=== PATIENT | female | born 1990 | race African-American/Black ===

== ENCOUNTER 2016-12-16 22:02 | Emergency (ER) | payer MEDICAID ==
[~2016-12-16] VITALS: Ht 160 cm; Wt 61.5 kg
[~2016-12-16 22:02] MED LIST: CYCL-36 PO; NAPR500 PO; TRAM50TA PO
[2016-12-16 22:05] VITALS: BP 133/82; PULSE 85; RESP 16; TEMP 98.1; O2SAT 100
== END 2016-12-17 01:20 | disposition left against medical advice (07) ==
LOC: NED 22:02
DX: R10.9 Unspecified abdominal pain (principal); M54.9 Dorsalgia, unspecified; Z53.21 Procedure and treatment not carried out due to patient leaving prior to being seen by health care provider
CPT/HCPCS: 99281

== ENCOUNTER 2017-02-05 14:58 | Emergency (ER) | payer MEDICAID ==
[~2017-02-05] VITALS: Ht 160 cm; Wt 60.0 kg
[2017-02-05 14:59] VITALS: BP 136/93; PULSE 84; RESP 18; TEMP 97.6; O2SAT 100
[2017-02-05] MEDS ORDERED: KETOROLAC TROMETHAMINE 30 MG/ML (IVP) VIAL IVP ONE (19:15)
[2017-02-05] MEDS ORDERED: SODIUM CHLORIDE 0.9% FLUSH 10 ML FLUSH IV FLUSH PRN (19:15)
[2017-02-05] MEDS ORDERED: ONDANSETRON HCL 4 MG/2 ML VIAL IVP ONE (19:15)
--- NOTE | 2017-02-05 19:15 | PD ---
HPI Chief Complaint: Abdominal Pain Time Seen by Provider: 19:00 Travel History International Travel<30 days: No Contact w/Intl Traveler<30days: No Traveled to known affect area: No History of Present Illness HPI 26yo F with PMH of cholelithiasis presents to the ED with c/o generalized abdominal pain that radiates to generalized back pain since around 1pm today. Pain is like contractions and constant. Associated with nausea. Denies any fever, chest pain, sob, vomiting, diarrhea, vaginal bleeding or discharge, IVDA , trauma, focal weakness or numbness. States LMP was in january 2017. Took grandmother's oxycodone at 1pm which helped with pain. PFSH Past Medical History Hx Anticoagulant Therapy: No Cardiovascular Problems: No Chemotherapy: No Cerebrovascular Accident: No Diabetes: No Diminished Hearing: No Respiratory: No Immunizations Current: Yes Past Surgical History Hysterectomy: No Other Surgery: Yes (lower leg fx in 09/2016) Social History Alcohol Use: Yes (OCC) Tobacco Use: No Substance Use: No Allergies-Medications (Allergen,Severity, Reaction): Coded Allergies: Penicillin (Verified Allergy, Intermediate, Hives, 02/05/17) Reported Meds & Prescriptions Reported Meds & Active Scripts Active Zofran Odt (Ondansetron Odt) 4 Mg Tab 4 Mg SL Q8HR PRN Acetaminophen Extra Strength (Acetaminophen) 500 Mg Tab 500 Mg PO Q6H PRN Reported Zantac (Ranitidine HCl) 150 Mg Tab 150 Mg PO DAILY Review of Systems Except as stated in HPI: all other systems reviewed are Neg Physical Exam Narrative GENERAL: 26yo F not in distress. SKIN: Focused skin assessment warm/dry. HEAD: Atraumatic. Normocephalic. NECK: Trachea midline. No JVD. CARDIOVASCULAR: Regular rate and rhythm. No murmur appreciated. RESPIRATORY: No accessory muscle use. Clear to auscultation. Breath sounds equal bilaterally. GASTROINTESTINAL: Abdomen soft, mild tenderness diffusely. No Mcburney's point ttp or Walker's ttp. No rebound tenderness or guarding. BACK: No midline ttp thoracic or lumbar spine. Diffuse paraspinal tenderness on both sides. MUSCULOSKELETAL: No obvious deformities. No clubbing. No cyanosis. No edema. NEUROLOGICAL: Awake and alert. No obvious cranial nerve deficits. Motor grossly within normal limits. Normal speech. PSYCHIATRIC: Appropriate mood and affect; insight and judgment normal. Data Data Last Documented VS Vital Signs Date Time Temp Pulse Resp B/P Pulse Ox O2 Delivery O2 Flow Rate FiO2 02/05/17 19:41 60 16 116/79 100 Room Air 02/05/17 14:59 97.6 Orders Complete Blood Count With Diff (02/05/17 19:06) Lipase (02/05/17 19:06) Urinalysis - C+S If Indicated (02/05/17 19:06) Iv Access Insert/Monitor (02/05/17 19:06) Ecg Monitoring (02/05/17 19:06) Oximetry (02/05/17 19:06) Ondansetron Inj (Zofran Inj) (02/05/17 19:15) Sodium Chloride 0.9% Flush (Ns Flush) (02/05/17 19:15) Ketorolac Inj (Toradol Inj) (02/05/17 19:15) Ed Urine Pregnancytest Poc (02/05/17 19:06) Ed Poc Ultrasound (02/05/17 ) Basic Metabolic Panel (Bmp) (02/05/17 19:20) Hepatic Functional Panel (02/05/17 19:20) Labs Laboratory Tests Test 02/05/17 02/05/17 19:00 19:20 Urine Color YELLOW Urine Turbidity HAZY Urine pH 6.5 Urine Specific [place] 1.030 Urine Protein 30 mg/dL Urine Glucose (UA) NEG mg/dL Urine Ketones NEG mg/dL Urine Occult Blood NEG Urine Nitrite NEG Urine Bilirubin NEG Urine Urobilinogen 4.0 MG/DL Urine Leukocyte Esterase NEG Urine RBC 1 /hpf Urine WBC 5 /hpf Urine Squamous Epithelial 4 /hpf Cells Urine Mucus MANY /lpf Microscopic Urinalysis Comment CULT NOT INDICATED White Blood Count 11.8 TH/MM3 Red Blood Count 4.41 MIL/MM3 Hemoglobin 12.3 GM/DL Hematocrit 38.0 % Mean Corpuscular Volume 86.2 FL Mean Corpuscular Hemoglobin 27.9 PG Mean Corpuscular Hemoglobin 32.3 % Concent Red Cell Distribution Width 13.7 % Platelet Count 258 TH/MM3 Mean Platelet Volume 9.7 FL Neutrophils (%) (Auto) 82.2 % Lymphocytes (%) (Auto) 13.4 % Monocytes (%) (Auto) 3.6 % Eosinophils (%) (Auto) 0.2 % Basophils (%) (Auto) 0.6 % Neutrophils # (Auto) 9.7 TH/MM3 Lymphocytes # (Auto) 1.6 TH/MM3 Monocytes # (Auto) 0.4 TH/MM3 Eosinophils # (Auto) 0.0 TH/MM3 Basophils # (Auto) 0.1 TH/MM3 CBC Comment DIFF FINAL Differential Comment Sodium Level 140 MEQ/L Potassium Level 3.6 MEQ/L Chloride Level 105 MEQ/L Carbon Dioxide Level 26.8 MEQ/L Anion Gap 8 MEQ/L Blood Urea Nitrogen 9 MG/DL Creatinine 0.70 MG/DL Estimat Glomerular Filtration 122 ML/MIN Rate Random Glucose 110 MG/DL Calcium Level 8.6 MG/DL Total Bilirubin 0.1 MG/DL Direct Bilirubin 0.1 MG/DL Indirect Bilirubin 0.0 MG/DL Aspartate Amino Transf 42 U/L (AST/SGOT) Alanine Aminotransferase 35 U/L (ALT/SGPT) Alkaline Phosphatase 77 U/L Total Protein 7.8 GM/DL Albumin 3.6 GM/DL Lipase 87 U/L MDM Medical Decision Making Medical Screen Exam Complete: Yes Emergency Medical Condition: Yes Interpretation(s) Vital Signs Date Time Temp Pulse Resp B/P Pulse Ox O2 Delivery O2 Flow Rate FiO2 02/05/17 19:41 60 16 116/79 100 Room Air 02/05/17 14:59 97.6 84 18 136/93 100 Room Air Laboratory Tests Test 02/05/17 02/05/17 19:00 19:20 Urine Color YELLOW (YELLW/STRAW) Urine Turbidity HAZY (CLEAR) Urine pH 6.5 (5.0-8.5) Urine Specific [place] 1.030 (1.002-1.035) Urine Protein 30 mg/dL (NEG-TRACE) Urine Glucose (UA) NEG mg/dL (NEG) Urine Ketones NEG mg/dL (NEG) Urine Occult Blood NEG (NEG) Urine Nitrite NEG (NEG) Urine Bilirubin NEG (NEG) Urine Urobilinogen 4.0 MG/DL (LESS THAN 2.0) Urine Leukocyte Esterase NEG (NEG) Urine RBC 1 /hpf (0-3) Urine WBC 5 /hpf (0-5) Urine Squamous Epithelial 4 /hpf (0-5) Cells Urine Mucus MANY /lpf (OCC) Microscopic Urinalysis Comment CULT NOT INDICATED White Blood Count 11.8 TH/MM3 (4.0-11.0) Red Blood Count 4.41 MIL/MM3 (4.00-5.30) Hemoglobin 12.3 GM/DL (11.6-15.3) Hematocrit 38.0 % (35.0-46.0) Mean Corpuscular Volume 86.2 FL (80.0-100.0) Mean Corpuscular Hemoglobin 27.9 PG (27.0-34.0) Mean Corpuscular Hemoglobin 32.3 % Concent (32.0-36.0) Red Cell Distribution Width 13.7 % (11.6-17.2) Platelet Count 258 TH/MM3 (150-450) Mean Platelet Volume 9.7 FL (7.0-11.0) Neutrophils (%) (Auto) 82.2 % (16.0-70.0) Lymphocytes (%) (Auto) 13.4 % (9.0-44.0) Monocytes (%) (Auto) 3.6 % (0.0-8.0) Eosinophils (%) (Auto) 0.2 % (0.0-4.0) Basophils (%) (Auto) 0.6 % (0.0-2.0) Neutrophils # (Auto) 9.7 TH/MM3 (1.8-7.7) Lymphocytes # (Auto) 1.6 TH/MM3 (1.0-4.8) Monocytes # (Auto) 0.4 TH/MM3 (0-0.9) Eosinophils # (Auto) 0.0 TH/MM3 (0-0.4) Basophils # (Auto) 0.1 TH/MM3 (0-0.2) CBC Comment DIFF FINAL Differential Comment Sodium Level 140 MEQ/L (136-145) Potassium Level 3.6 MEQ/L (3.5-5.1) Chloride Level 105 MEQ/L (98-107) Carbon Dioxide Level 26.8 MEQ/L (21.0-32.0) Anion Gap 8 MEQ/L (5-15) Blood Urea Nitrogen 9 MG/DL (7-18) Creatinine 0.70 MG/DL (0.50-1.00) Estimat Glomerular Filtration 122 ML/MIN Rate (>89) Random Glucose 110 MG/DL (74-106) Calcium Level 8.6 MG/DL (8.5-10.1) Total Bilirubin 0.1 MG/DL (0.2-1.0) Direct Bilirubin 0.1 MG/DL (0.0-0.2) Indirect Bilirubin 0.0 MG/DL (0.0-0.8) Aspartate Amino Transf 42 U/L (15-37) (AST/SGOT) Alanine Aminotransferase 35 U/L (10-53) (ALT/SGPT) Alkaline Phosphatase 77 U/L (45-117) Total Protein 7.8 GM/DL (6.4-8.2) Albumin 3.6 GM/DL (3.4-5.0) Lipase 87 U/L (73-393) Differential Diagnosis Gastritis vs. cholecystitis vs. vs. pyelonephritis vs. nephrolithiasis vs. pancreatitis vs. musculoskeletal pain Narrative Course 26yo well appearing female here with abdominal and back pain. Abdominal exam is unremarkable although pt states it hurts everywhere. Will check urine , UA, labs and give zofran and toradol. Will reevaluate. Pt reevaluated at bedside and states abdominal pain has resolved. Abdomen is soft, NT/ND. No rebound tenderness or guarding. Labs reviewed, mild leukocytosis at 11.8. Lipase normal at 87. CMP unremarkable except for mildly elevated 42. UA showed no leukocyte or nitrite. VS stable. Pt tolerating PO. Return precautions given. Procedures Procedure Narrative Emergency department urinary tract ultrasound was performed with patient consent. Curvilinear probe was used in the transverse and sagittal views in the bilateral flank and suprapubic region without evidence of hydronephrosis or urinary retention. Diagnosis Primary Impression: Abdominal pain Qualified Code: R10.84 - Generalized abdominal pain Patient Instructions: General Instructions Departure Forms: Tests/Procedures Additional Instructions: Please follow up with your PMD in 3-7 days. Return to the ED if symptoms worsen. Med/Other Pt SpecificInfo: Prescription(s) given Scripts Ondansetron Odt (Zofran Odt)4 Mg Tab4 Mg SL Q8HR PRN (Nausea/Vomiting) #7 TAB Ref 0 Prov:Barbra Courtney 02/05/17 Acetaminophen (Acetaminophen Extra Strength)500 Mg [id number] Mg PO Q6H PRN (PAIN SCALE 1 TO 4) #20 TAB Ref 0 Prov:Barbra Courtney 02/05/17 Disposition: 01 DISCHARGE HOME Condition: Stable Barbra Courtney DO Feb 05, 2017 19:14
[2017-02-05] MEDS ORDERED: ZANT150T2 PO (19:28)
[2017-02-05 19:41] VITALS: BP 116/79; PULSE 60; RESP 16; O2SAT 100
[2017-02-05 19:45] LABS: BLOOD, URINE NEG (NEG); COMMENT (UR) CULT NOT INDICATED; CULTURE IF INDICATED CULT NOT INDICATED; GLUCOSE,URINE NEG (NEG); KETONE, URINE NEG (NEG); MUCUS URINE MANY /lpf (OCC); NITRITE,URINE NEG (NEG); PH, URINE 6.5 (5.0-8.5); SQUAMOUS EPITHELIAL CELL URINE 4 /hpf (0-5); URINE COLOR YELLOW (YELLW/STRAW)
[2017-02-05 19:50] LABS: AUTOMATED NEUTROPHIL # 9.7 TH/MM3 (1.8-7.7); BASOPHIL # 0.1 TH/MM3 (0-0.2); BASOPHIL % 0.6 % (0.0-2.0); EOSINOPHIL % 0.2 % (0.0-4.0); HEMO FLAGS DIFF FINAL; LYMPH % 13.4 % (9.0-44.0); LYMPHOCYTE # 1.6 TH/MM3 (1.0-4.8); MEAN CELL VOLUME 86.2 FL (80.0-100.0); MEAN CORPUSCULAR HEMOGLOBIN 27.9 PG (27.0-34.0); MEAN CORPUSCULAR HGB CONC 32.3 % (32.0-36.0); MONO % 3.6 % (0.0-8.0); NEUT % 82.2 % (16.0-70.0); PLATELET COUNT 258 TH/MM3 (150-450); RED BLOOD COUNT 4.41 MIL/MM3 (4.00-5.30); RED CELL DISTRIBUTION WIDTH 13.7 % (11.6-17.2); WHITE BLOOD COUNT 11.8 TH/MM3 (4.0-11.0)
[2017-02-05 20:40] LABS: BICARBONATE 26.8 MEQ/L (21.0-32.0)
[2017-02-05 20:43] LABS: TOTAL BILIRUBIN ADULT 0.1 MG/DL (0.2-1.0)
[2017-02-05] MEDS ORDERED: ZOFR4TAB3 SL (21:00)
[2017-02-05] MEDS ORDERED: ACET500T36 PO (21:00)
[2017-02-05 21:07] LABS: POTASSIUM 3.6 MEQ/L (3.5-5.1)
[2017-02-05 21:10] VITALS: BP 122/76; PULSE 52; RESP 16; O2SAT 98
== END 2017-02-05 21:39 | disposition home or self-care (01) ==
LOC: NEPE 14:58
DX: R10.84 Generalized abdominal pain (principal); M54.9 Dorsalgia, unspecified; R11.0 Nausea
CPT/HCPCS: 80048; 80076; 81001; 83690; 84703; 85025; 96374; 96375; 99284; J1885; J2405

== ENCOUNTER 2017-02-27 17:18 | Emergency (ER) | payer MEDICAID ==
[~2017-02-27] VITALS: Ht 160 cm; Wt 62.0 kg
[~2017-02-27 17:18] MED LIST changes: +ACET500T36 PO; -CYCL-36 PO; -NAPR500 PO; -TRAM50TA PO; +ZANT150T2 PO; +ZOFR4TAB3 SL
[2017-02-27 17:20] VITALS: BP 149/89; PULSE 66; RESP 17; TEMP 98.1; O2SAT 98
--- NOTE | 2017-02-27 17:36 | PD ---
Physical Exam Time Seen by Provider: 17:34 Narrative 26yo F c/o chest pain and abd pain from her gallstones x45 minutes. reports Nausea w/o vomiting. Denies fever. Denies risk of . Patient stable. Patient seen in triage. Awaiting bed placement. Data Data Last Documented VS Vital Signs Date Time Temp Pulse Resp B/P Pulse Ox O2 Delivery O2 Flow Rate FiO2 02/27/17 17:20 98.1 66 17 149/89 98 MDM Supervised Visit with YARITZA: Jeana Maldonado Feb 27, 2017 17:36
[2017-02-27 20:37] VITALS: BP 124/81; PULSE 77; RESP 18; O2SAT 100
[2017-02-27] MEDS ORDERED: SODIUM CHLOR 0.9% 1000 ML INJ 1,000 ML IV SCH (20:41)
[2017-02-27] MEDS ORDERED: MORPHINE SULFATE 8 MG/ML INJ IV PUSH ONE (20:45)
[2017-02-27] MEDS ORDERED: SODIUM CHLORIDE 0.9% FLUSH 10 ML FLUSH IV FLUSH PRN (20:45)
[2017-02-27] MEDS ORDERED: ONDANSETRON HCL 4 MG/2 ML VIAL IVP ONE (20:45)
[2017-02-27 21:12] VITALS: RESP 16
[2017-02-27 21:34] LABS: AUTOMATED NEUTROPHIL # 8.4 TH/MM3 (1.8-7.7); BASOPHIL % 0.4 % (0.0-2.0); EOSINOPHIL % 0.3 % (0.0-4.0); HEMATOCRIT 37.3 % (35.0-46.0); HEMO FLAGS DIFF FINAL; LYMPH % 14.5 % (9.0-44.0); LYMPHOCYTE # 1.6 TH/MM3 (1.0-4.8); MEAN CELL VOLUME 84.4 FL (80.0-100.0); MEAN CORPUSCULAR HEMOGLOBIN 28.7 PG (27.0-34.0); MEAN CORPUSCULAR HGB CONC 34.1 % (32.0-36.0); MONO % 6.5 % (0.0-8.0); NEUT % 78.3 % (16.0-70.0); PLATELET COUNT 245 TH/MM3 (150-450); RED BLOOD COUNT 4.42 MIL/MM3 (4.00-5.30); RED CELL DISTRIBUTION WIDTH 13.6 % (11.6-17.2); WHITE BLOOD COUNT 10.8 TH/MM3 (4.0-11.0)
[2017-02-27 21:40] LABS: ANION GAP 8 MEQ/L (5-15); AST (GOT) 231 U/L (15-37); BICARBONATE 27.8 MEQ/L (21.0-32.0); BLOOD UREA NITROGEN 9 MG/DL (7-18); CHLORIDE 104 MEQ/L (98-107); GLOMERULAR FILTRATION RATE 115 ML/MIN (>89); POTASSIUM 3.6 MEQ/L (3.5-5.1); SODIUM (NA) 140 MEQ/L (136-145)
[2017-02-27 21:42] LABS: BACTERIA, URINE RARE /hpf; BLOOD, URINE NEG (NEG); COMMENT (UR) CULT NOT INDICATED; CULTURE IF INDICATED CULT NOT INDICATED; GLUCOSE,URINE NEG (NEG); KETONE, URINE 40 mg/dL (NEG); MUCUS URINE MANY /lpf (OCC); NITRITE,URINE NEG (NEG); PH, URINE 6.5 (5.0-8.5); SQUAMOUS EPITHELIAL CELL URINE 2 /hpf (0-5); URINE COLOR YELLOW (YELLW/STRAW)
[2017-02-27 21:45] LABS: ALKALINE PHOSPHATASE 103 U/L (45-117); ALT (GPT) 145 U/L (10-53); TOTAL BILIRUBIN ADULT 0.7 MG/DL (0.2-1.0)
--- NOTE | 2017-02-27 22:49 | RADRPT ---
EXAM DATE/TIME: 02/27/2017 21:45 [facility] COMPARISON: No previous studies available for comparison. INDICATIONS : Pain MEDICAL HISTORY : Gastroesophageal reflux disease. Alcohol use. SURGICAL HISTORY : Lower leg fracture repair. ENCOUNTER: Initial ACUITY: 1 day PAIN SCORE: 10/10 LOCATION: Right upper quadrant MEASUREMENTS: LIVER: 14.6 cm length COMMON DUCT: 4 mm RIGHT KIDNEY: 10.3 x 5.0 x 4.9 cm FINDINGS: Multiple gallstones are present without gallbladder wall thickening, or pericholecystic fluid. The v isualized liver, head of the pancreas, and right kidney appear grossly intact for technique. CONCLUSION: Cholelithiasis. Hussein Goldstein MD on February 27, 2017 at 22:46 Board Certified Radiologist. This report was verified electronically.
[2017-02-27] MEDS ORDERED: TRAM50TA PO (22:55)
[2017-02-27] MEDS ORDERED: ZOFR4TAB3 SL (22:55)
--- NOTE | 2017-02-27 22:56 | PD ---
HPI Chief Complaint: Abdominal Pain Time Seen by Provider: 20:41 Travel History International Travel<30 days: No Contact w/Intl Traveler<30days: No Traveled to known affect area: No History of Present Illness HPI 26-year-old female arrives with right upper quadrant pain. She states it feels like gallbladder stones. It started suddenly just prior to ER arrival. Nausea present. No vomiting or fever. Naprosyn 500 mg twice did not help. Last food was yesterday rice and chicken. Last menstruation was about 3 weeks ago. No urinary complaint vaginal bleeding or discharge. She is 3 para 3. PFSH Past Medical History Hx Anticoagulant Therapy: No Cardiovascular Problems: No Chemotherapy: No Cerebrovascular Accident: No Diabetes: No Diminished Hearing: No GERD: Yes Respiratory: No Immunizations Current: Yes ?: Not LMP: LATE JANUARY 2017 Past Surgical History Hysterectomy: No Other Surgery: Yes (lower leg fx in 09/2016) Social History Alcohol Use: Yes (OCC) Tobacco Use: No Substance Use: No Allergies-Medications (Allergen,Severity, Reaction): Coded Allergies: Penicillin (Verified Allergy, Intermediate, Hives, 02/27/17) Reported Meds & Prescriptions Reported Meds & Active Scripts Active Zofran Odt (Ondansetron Odt) 4 Mg Tab 4 Mg SL Q8HR PRN Acetaminophen Extra Strength (Acetaminophen) 500 Mg Tab 500 Mg PO Q6H PRN Reported Zantac (Ranitidine HCl) 150 Mg Tab 150 Mg PO DAILY Review of Systems Except as stated in HPI: all other systems reviewed are Neg General / Constitutional: No: Fever Gastrointestinal: Positive: Nausea, Abdominal Pain Physical Exam Narrative GENERAL: 26-year-old female well-nourished well-developed SKIN: Focused skin assessment warm/dry. HEAD: Atraumatic. Normocephalic. EYES: Pupils equal and round. No scleral icterus. No injection or drainage. ENT: No nasal bleeding or discharge. Mucous membranes pink and moist. NECK: Trachea midline. No JVD. CARDIOVASCULAR: Regular rate and rhythm. No murmur appreciated. RESPIRATORY: No accessory muscle use. Clear to auscultation. Breath sounds equal bilaterally. GASTROINTESTINAL: Soft. Tenderness to palpation right upper quadrant. MUSCULOSKELETAL: No obvious deformities. No clubbing. No cyanosis. No edema. NEUROLOGICAL: Awake and alert. No obvious cranial nerve deficits. Motor grossly within normal limits. Normal speech. PSYCHIATRIC: Appropriate mood and affect; insight and judgment normal. Data Data Last Documented VS Vital Signs Date Time Temp Pulse Resp B/P Pulse Ox O2 Delivery O2 Flow Rate FiO2 02/27/17 21:12 16 02/27/17 20:37 77 124/81 100 Room Air 02/27/17 17:20 98.1 Vital signs reviewed Orders Complete Blood Count With Diff (02/27/17 20:41) Comprehensive Metabolic Panel (02/27/17 20:41) Lipase (02/27/17 20:41) Urinalysis - C+S If Indicated (02/27/17 20:41) Iv Access Insert/Monitor (02/27/17 20:41) Ecg Monitoring (02/27/17 20:41) Oximetry (02/27/17 20:41) Ondansetron Inj (Zofran Inj) (02/27/17 20:45) Sodium Chlor 0.9% 1000 Ml Inj (Ns 1000 M (02/27/17 20:41) Sodium Chloride 0.9% Flush (Ns Flush) (02/27/17 20:45) Morphine Inj (Morphine Inj) (02/27/17 20:45) Ed Urine Pregnancytest Poc (02/27/17 20:41) Us Abdomen Gallbladder (02/27/17 ) Labs Laboratory Tests Test 02/27/17 02/27/17 20:50 21:00 Urine Color YELLOW Urine Turbidity HAZY Urine pH 6.5 Urine Specific [place] 1.036 Urine Protein 30 mg/dL Urine Glucose (UA) NEG mg/dL Urine Ketones 40 mg/dL Urine Occult Blood NEG Urine Nitrite NEG Urine Bilirubin NEG Urine Urobilinogen 8.0 MG/DL Urine Leukocyte Esterase NEG Urine RBC LESS THAN 1 /hpf Urine WBC 2 /hpf Urine Squamous Epithelial 2 /hpf Cells Urine Bacteria RARE /hpf Urine Mucus MANY /lpf Microscopic Urinalysis Comment CULT NOT INDICATED White Blood Count 10.8 TH/MM3 Red Blood Count 4.42 MIL/MM3 Hemoglobin 12.7 GM/DL Hematocrit 37.3 % Mean Corpuscular Volume 84.4 FL Mean Corpuscular Hemoglobin 28.7 PG Mean Corpuscular Hemoglobin 34.1 % Concent Red Cell Distribution Width 13.6 % Platelet Count 245 TH/MM3 Mean Platelet Volume 9.8 FL Neutrophils (%) (Auto) 78.3 % Lymphocytes (%) (Auto) 14.5 % Monocytes (%) (Auto) 6.5 % Eosinophils (%) (Auto) 0.3 % Basophils (%) (Auto) 0.4 % Neutrophils # (Auto) 8.4 TH/MM3 Lymphocytes # (Auto) 1.6 TH/MM3 Monocytes # (Auto) 0.7 TH/MM3 Eosinophils # (Auto) 0.0 TH/MM3 Basophils # (Auto) 0.0 TH/MM3 CBC Comment DIFF FINAL Differential Comment Sodium Level 140 MEQ/L Potassium Level 3.6 MEQ/L Chloride Level 104 MEQ/L Carbon Dioxide Level 27.8 MEQ/L Anion Gap 8 MEQ/L Blood Urea Nitrogen 9 MG/DL Creatinine 0.74 MG/DL Estimat Glomerular Filtration 115 ML/MIN Rate Random Glucose 97 MG/DL Calcium Level 9.0 MG/DL Total Bilirubin 0.7 MG/DL Aspartate Amino Transf 231 U/L (AST/SGOT) Alanine Aminotransferase 145 U/L (ALT/SGPT) Alkaline Phosphatase 103 U/L Total Protein 7.9 GM/DL Albumin 3.7 GM/DL Lipase 110 U/L [facility] Medical Decision Making Medical Screen Exam Complete: Yes Emergency Medical Condition: Yes Medical Record Reviewed: Yes Differential Diagnosis Constipation, Gastritis, Acute Cholecystitis, Biliary Colic, Pancreatitis, ROBLERO , Hepatitis, Bowel Obstruction, Cystitis, Mesenteric Ischemia, AAA, Appendicitis , Renal Stone/Hydronephrosis, GERD, perforated viscous Narrative Course CBC & BMP Diagram 02/27/17 21:00 AST 231 ALT 145 Right upper quadrant ultrasound reveals cholelithiasis without cholecystitis The patient is resting comfortably and feels better, is alert and in no distress. The patients results and examination findings were discussed. The repeat examination is unremarkable and benign. The history, exam, diagnostic testing, and current condition do not suggest any significant pathology to warrant further testing, continued ED treatment, admission, or surgical evaluation at this point. The vital signs have been stable. The patient does not have uncontrollable pain, intractable vomiting, or other significant symptoms. The patient's condition is stable and appropriate for discharge. The patient will pursue further outpatient evaluation with a primary care physician or other designated or consulting physician as indicated in the discharge instructions. The patient expressed understanding and was agreeable with this plan. Diagnosis Primary Impression: Gallbladder colic Referrals: Cruzito Strange MD 2 days Bright Singh MD 2 days General Surgeon 2 days Additional Instructions: You have a choice when it comes to health care, and we are glad that you chose [facility]. Hopefully, we have met your expectations on today's visit. You are welcome to return to [facility] at any time, as we are committed to meeting the health care needs of our community. Med/Other Pt SpecificInfo: Prescription(s) given Scripts Tramadol 50 Mg Tab50 Mg PO Q8H PRN (PAIN SCALE 6 TO 10) #15 TAB Ref 0 Prov:Kwabena Velázquez MD 02/27/17 Ondansetron Odt (Zofran Odt)4 Mg Tab4 Mg SL Q8HR PRN (Nausea/Vomiting) #7 TAB Ref 0 Prov:Kwabena Velázquez MD 02/27/17 Disposition: 01 DISCHARGE HOME Condition: Stable Kwabena Velázquez MD Feb 27, 2017 22:56
== END 2017-02-27 23:10 | disposition home or self-care (01) ==
LOC: NEPD 17:18
DX: K80.20 Calculus of gallbladder without cholecystitis without obstruction (principal)
CPT/HCPCS: 76705; 80053; 81001; 83690; 84703; 85025; 96361; 96374; 96375; 99284; J2270; J2405; J7030

== ENCOUNTER 2017-04-16 17:53 | Emergency (ER) | payer MEDICAID ==
[~2017-04-16] VITALS: Ht 160 cm; Wt 63.5 kg
[~2017-04-16 17:53] MED LIST changes: +TRAM50TA PO
[2017-04-16 17:55] VITALS: BP 116/68; PULSE 80; RESP 18; TEMP 98.6; O2SAT 100
--- NOTE | 2017-04-16 18:11 | PD ---
Physical Exam Time Seen by Provider: 18:09 Narrative 26yo F a/o tooth pain, abd and pelvic pain x3days. Denies vomiting, diarrhea, fever. LMP April 03. Patient seen in triage. VS reviewed. Awaiting bed placement. Data Data Last Documented VS Vital Signs Date Time Temp Pulse Resp B/P Pulse Ox O2 Delivery O2 Flow Rate FiO2 04/16/17 17:55 98.6 80 18 116/68 100 Room Air MDM Supervised Visit with YARITZA: Jeana Maldonado Apr 16, 2017 18:11
--- NOTE | 2017-04-16 19:24 | PD ---
Data Data Last Documented VS Vital Signs Date Time Temp Pulse Resp B/P Pulse Ox O2 Delivery O2 Flow Rate FiO2 04/16/17 17:55 98.6 80 18 116/68 100 Room Air Orders Urinalysis - C+S If Indicated (04/16/17 19:21) Ellen Mistry Apr 16, 2017 19:23
--- NOTE | 2017-04-16 19:25 | PD ---
HPI . tooth pain left lower jaw worsening over past several days, pelvic discomfort x 1 day Chief Complaint: Abdominal Pain Time Seen by Provider: 19:25 Travel History International Travel<30 days: No Contact w/Intl Traveler<30days: No Traveled to known affect area: No History of Present Illness HPI 26-year-old female here with complaints of left lower tooth pain for quite some time. Patient tells me that over the past several days the area has worsened. She thinks she has a possible start of an abscess in her left lower gumline. She is requesting antibiotics and pain medications. He that she has some mild diffuse abdominal pain. She thinks this is related to her gallbladder. She denies any nausea, vomiting, diaphoresis or sharp abdominal pains. Patient also reports pelvic pain that started yesterday. She thinks she may have a urinary tract infection. She tells me that she does not have any STDs or vaginal discharge. She tells me that she recently was tested at her primary care provider office for STDs and was negative. She has no other complaints at this time. PFSH Past Medical History Hx Anticoagulant Therapy: No Cardiovascular Problems: No Chemotherapy: No Cerebrovascular Accident: No Diabetes: No Diminished Hearing: No GERD: Yes Respiratory: No Immunizations Current: Yes ?: Not LMP: 04/03/17 Past Surgical History Hysterectomy: No Other Surgery: Yes (lower leg fx in 09/2016) Social History Alcohol Use: Yes (OCC) Tobacco Use: No Substance Use: No Allergies-Medications (Allergen,Severity, Reaction): Coded Allergies: Penicillin (Verified Allergy, Intermediate, Hives, 02/27/17) Reported Meds & Prescriptions Reported Meds & Active Scripts Active Review of Systems General / Constitutional: No: Fever Eyes: No: Visual changes HENT: Positive: Dental Difficulties, No: Headaches Cardiovascular: No: Chest Pain or Discomfort Respiratory: No: Shortness of Breath Gastrointestinal: Positive: Abdominal Pain Genitourinary: Positive: Pelvic Pain, No: Dysuria Musculoskeletal: No: Pain Skin: No Rash Neurologic: No: Weakness Psychiatric: No: Depression Endocrine: No: Polydipsia Hematologic/Lymphatic: No: Easy Bruising Physical Exam Narrative GENERAL: AAO x 3, no acute distress, Well-nourished, well-developed patient. SKIN: Warm and dry. No visible rashes or bruising. HEAD: Normocephalic and atraumatic. EYES: No scleral icterus. No injection or drainage. EOM intact, PERRLA ENT: No nasal drainage noted. Mucous membranes pink. Airway patent. Moist mucous membranes. Left lower gumline #17 and 18 cracked with some minimal inflammation. No definite fluid collection or abscess. NECK: Supple, trachea midline. No JVD. No lymphadenopathy CARDIOVASCULAR: Regular rate and rhythm without murmurs, gallops, or rubs. RESPIRATORY: Breath sounds equal bilaterally. No accessory muscle use. No rhonchi or rales. GASTROINTESTINAL: Abdomen soft, non-tender, nondistended. No McBurney point tenderness. No suprapubic tenderness. No guarding or rebound tenderness. EXTREMITIES: No cyanosis or edema. BACK: Nontender without obvious deformity. No CVA tenderness. NEURO: CN II through XII intact PSYCH: AAO x 3, normal affect. Data Data Last Documented VS Vital Signs Date Time Temp Pulse Resp B/P Pulse Ox O2 Delivery O2 Flow Rate FiO2 04/16/17 17:55 98.6 80 18 116/68 100 Room Air Orders Urinalysis - C+S If Indicated (04/16/17 19:21) Tramadol (Ultram) (04/16/17 19:45) Labs Laboratory Tests Test 04/16/17 18:19 Urine Color YELLOW Urine Turbidity HAZY Urine pH 6.5 Urine Specific [place] 1.031 Urine Protein 30 mg/dL Urine Glucose (UA) NEG mg/dL Urine Ketones NEG mg/dL Urine Occult Blood NEG Urine Nitrite NEG Urine Bilirubin NEG Urine Urobilinogen 4.0 MG/DL Urine Leukocyte Esterase NEG Urine RBC 1 /hpf Urine WBC 2 /hpf Urine Squamous Epithelial 4 /hpf Cells Urine Mucus MANY /lpf Microscopic Urinalysis Comment CULT NOT INDICATED MDM Medical Decision Making Medical Screen Exam Complete: Yes Emergency Medical Condition: Yes Medical Record Reviewed: Yes Differential Diagnosis Dentalgia, gingivitis, cholelithiasis, urinary tract infection Narrative Course 26-year-old female here with multiple complaints. Upon discussion it seems her most pressing issue seems to be her left lower tooth pain. She is requesting pain medication and antibiotics for this tooth. She does not have any acute abdominal findings on examination. I do not suspect any acute intra-abdominal process. This is not an acute abdomen. I do not recommend imaging. She does not have any pelvic pain on examination. She denies any vaginal discharge and doesn't want pelvic exam (reports cleared from [facility] a few weeks ago). In the meantime I will check a UA to look for any signs of urinary tract infection. She does have some gingival inflammation around #17 and 18 and I will provide some antibiotics with oral coverage. UA negative for any acute infection. I discussed with the patient and recommended treatment for her oral infection. I recommend follow-up with a dentist as soon as possible. Patient verbalized understanding of instructions, questions were answered, and thanked me for their care. I advised them if their condition worsens, please return to the nearest emergency room for further care. Diagnosis Primary Impression: Dentalgia Referrals: Dentist Patient Instructions: General Instructions Additional Instructions: Please return to emergency department if your symptoms return or worsen. Follow up with your primary care provider. Take medications as prescribed. Please see a dentist as soon as possible. Med/Other Pt SpecificInfo: Prescription(s) given Scripts Ibuprofen 800 Mg [id number] Mg PO TID #21 TAB Prov:Kwabena Velázquez MD 04/16/17 Clindamycin 300 Mg [id number] Mg PO TID #21 CAP Prov:Kwabena Velázquez MD 04/16/17 Disposition: 01 DISCHARGE HOME Condition: Stable Ellen Mistry Apr 16, 2017 19:25
[2017-04-16] MEDS ORDERED: traMADol HCL 50 MG TAB PO ONE (19:45)
[2017-04-16 20:27] LABS: BLOOD, URINE NEG (NEG); COMMENT (UR) CULT NOT INDICATED; CULTURE IF INDICATED CULT NOT INDICATED; GLUCOSE,URINE NEG (NEG); KETONE, URINE NEG (NEG); MUCUS URINE MANY /lpf (OCC); NITRITE,URINE NEG (NEG); PH, URINE 6.5 (5.0-8.5); SQUAMOUS EPITHELIAL CELL URINE 4 /hpf (0-5); URINE COLOR YELLOW (YELLW/STRAW)
[2017-04-16] MEDS ORDERED: IBUP800T23 PO (20:35)
[2017-04-16] MEDS ORDERED: CLIN1CAP6 PO (20:35)
== END 2017-04-16 21:31 | disposition home or self-care (01) ==
LOC: NEPD 17:53
DX: K08.89 Other specified disorders of teeth and supporting structures (principal); Z88.0 Allergy status to penicillin
CPT/HCPCS: 81001; 99283

== ENCOUNTER 2017-06-25 17:06 | Emergency (ER) | payer MEDICAID ==
[~2017-06-25] VITALS: Ht 160 cm; Wt 60.0 kg
[~2017-06-25 17:06] MED LIST changes: -ACET500T36 PO; +CLIN1CAP6 PO; +IBUP800T23 PO; -TRAM50TA PO; -ZANT150T2 PO; -ZOFR4TAB3 SL
[2017-06-25 17:07] VITALS: BP 147/94; PULSE 68; RESP 14; TEMP 98.5; O2SAT 98
--- NOTE | 2017-06-25 17:31 | PD ---
Physical Exam Date Seen by Provider: Jun 25, 2017 Time Seen by Provider: 17:30 Narrative 26 YOBF C/O DARSHAN CP. H/O SAME VS REVIEWED WAITING FOR BED PLACEMENT Data Data Last Documented VS Vital Signs Date Time Temp Pulse Resp B/P Pulse Ox O2 Delivery O2 Flow Rate FiO2 06/25/17 17:07 98.5 68 14 147/94 98 Room Air MDM Supervised Visit with YARITZA: Pradeep Be Jun 25, 2017 17:31
[2017-06-25 19:11] VITALS: BP 123/89; PULSE 69; RESP 18; TEMP 98.1; O2SAT 100
--- NOTE | 2017-06-25 19:13 | PD ---
HPI Chief Complaint: Cardiac Complaint Time Seen by Provider: 18:59 Travel History International Travel<30 days: No Contact w/Intl Traveler<30days: No Traveled to known affect area: No History of Present Illness HPI Patient's 26 years old. She arrives from her primary care provider's office after an EKG was done there, evidently revealing an abnormality, prompting ER evaluation. She reports a sharp retrosternal chest pain for about 7 days intermittently which is only become significant today. She's also had tremor in the right hand associated with paresthesias. Within the last [address] scan of the head and neck and a CT pulmonary angiogram study and been performed all of which have been normal. Patient has been seen here before for complaints involving the right upper extremity no similar in nature. PFSH Past Medical History Hx Anticoagulant Therapy: No Cardiovascular Problems: No Chemotherapy: No Cerebrovascular Accident: No Diabetes: No Diminished Hearing: No GERD: Yes Medical other: Yes (lower leg fx in 09/2016) Respiratory: No Immunizations Current: Yes ?: Unknown LMP: 05/10/17 Past Surgical History Surgical History: No Previous Surgery Hysterectomy: No Other Surgery: Yes (lower leg fx in 09/2016) Social History Alcohol Use: Yes (OCC) Tobacco Use: No Substance Use: No Allergies-Medications (Allergen,Severity, Reaction): Coded Allergies: penicillin G (Unverified Allergy, Intermediate, Hives, 06/25/17) Reported Meds & Prescriptions Reported Meds & Active Scripts Active No Active Prescriptions or Reported Medications Review of Systems Except as stated in HPI: all other systems reviewed are Neg Physical Exam Narrative GENERAL: 26-year-old female, no acute distress, involuntary tremor of the right hand occurred at the time of interview lasting about 15 to 20 seconds SKIN: Warm and dry. HEAD: Atraumatic. Normocephalic. EYES: Pupils equal and round. No scleral icterus. No injection or drainage. ENT: No nasal bleeding or discharge. Mucous membranes pink and moist. NECK: Trachea midline. No JVD. CARDIOVASCULAR: Regular rate and rhythm. RESPIRATORY: No accessory muscle use. Clear to auscultation. Breath sounds equal bilaterally. GASTROINTESTINAL: Abdomen soft, non-tender, nondistended. Hepatic and splenic margins not palpable. MUSCULOSKELETAL: Extremities without clubbing, cyanosis, or edema. No obvious deformities. NEUROLOGICAL: Normal gait. Normal speech memory mentation. Hand lunchroom attendant is equal bilaterally. 2+ radial artery pulses bilaterally. PSYCHIATRIC: Appropriate mood and affect; insight and judgment normal. Data Data Last Documented VS Vital Signs Date Time Temp Pulse Resp B/P Pulse Ox O2 Delivery O2 Flow Rate FiO2 06/25/17 20:06 18 100 Room Air 06/25/17 19:11 98.1 69 123/89 Vital signs reviewed. Orders Electrocardiogram (06/25/17 17:29) D-Dimer (06/25/17 17:29) Chest, Pa & Lat (06/25/17 17:29) Lorazepam (Ativan) (06/25/17 19:15) Basic Metabolic Panel (Bmp) (06/25/17 19:44) Ckmb (Isoenzyme) Profile (06/25/17 19:44) Complete Blood Count With Diff (06/25/17 19:44) Magnesium (Mg) (06/25/17 19:44) Troponin I (06/25/17 19:44) Ecg Monitoring (06/25/17 19:44) Iv Access Insert/Monitor (06/25/17 19:44) Oximetry (06/25/17 19:44) Oxygen Administration (06/25/17 19:44) Aspirin (Aspirin) (06/25/17 19:45) Sodium Chloride 0.9% Flush (Ns Flush) (06/25/17 19:45) Sodium Chlorid 0.9% 500 Ml Inj (Ns 500 M (06/25/17 19:45) Ct Pulmonary Angiogram (06/25/17 19:44) Ed Urine Pregnancytest Poc (06/25/17 19:44) Beta Hcg (Quant/Titer) (06/25/17 19:44) Iohexol 350 Inj (Omnipaque 350 Inj) (06/25/17 20:28) Potassium Chloride (Kcl) (06/25/17 21:15) CKMB (06/25/17 20:00) CKMB% (06/25/17 20:00) Labs Laboratory Tests Test 06/25/17 06/25/17 18:00 20:00 D-Dimer Quantitative (PE/DVT) 0.75 MG/L FEU White Blood Count 10.5 TH/MM3 Red Blood Count 4.55 MIL/MM3 Hemoglobin 13.1 GM/DL Hematocrit 39.2 % Mean Corpuscular Volume 86.3 FL Mean Corpuscular Hemoglobin 28.7 PG Mean Corpuscular Hemoglobin 33.3 % Concent Red Cell Distribution Width 13.6 % Platelet Count 270 TH/MM3 Mean Platelet Volume 9.2 FL Neutrophils (%) (Auto) 64.1 % Lymphocytes (%) (Auto) 28.7 % Monocytes (%) (Auto) 6.1 % Eosinophils (%) (Auto) 0.6 % Basophils (%) (Auto) 0.5 % Neutrophils # (Auto) 6.7 TH/MM3 Lymphocytes # (Auto) 3.0 TH/MM3 Monocytes # (Auto) 0.6 TH/MM3 Eosinophils # (Auto) 0.1 TH/MM3 Basophils # (Auto) 0.1 TH/MM3 CBC Comment DIFF FINAL Differential Comment Sodium Level 138 MEQ/L Potassium Level 3.3 MEQ/L Chloride Level 105 MEQ/L Carbon Dioxide Level 27.8 MEQ/L Anion Gap 5 MEQ/L Blood Urea Nitrogen 8 MG/DL Creatinine 0.60 MG/DL Estimat Glomerular Filtration 146 ML/MIN Rate Random Glucose 83 MG/DL Calcium Level 8.6 MG/DL Magnesium Level 2.2 MG/DL Total Creatine Kinase 154 U/L Creatine Kinase MB LESS THAN 0.5 NG/ML Troponin I LESS THAN 0.02 NG/ML Human Chorionic Gonadotropin, LESS THAN 1 Quant MIU/ML MDM Medical Decision Making Medical Screen Exam Complete: Yes Emergency Medical Condition: Yes Medical Record Reviewed: Yes Differential Diagnosis Anxiety, MS, PE, atypical chest pain, coronary artery disease, pleurisy, pneumothorax Narrative Course CBC & BMP Diagram 06/25/17 20:00 D-dimer 0.75 Last [address] Angiography 06/25/17 1944 Signed Impressions: Service Date/Time: Sunday, June 25, 2017 20:25 - CONCLUSION: No PE. Kodak Lynn MD Chest X-Ray 06/25/17 1729 Signed Impressions: Service Date/Time: Sunday, June 25, 2017 18:49 - CONCLUSION: Normal examination. Kodak Lynn MD Workup is unremarkable. The patient will be discharged. Her EKG revealed sinus rhythm at 72 with an RSR prime pattern in V1 and V2 Diagnosis Primary Impression: Tremor Additional Impressions: Chest pain Qualified Code: R07.9 - Chest pain, unspecified type Hypokalemia Referrals: Primary Care Physician 2 days Additional Instructions: You have a choice when it comes to health care, and we are glad that you chose [facility]. Hopefully, we have met your expectations on today's visit. You are welcome to return to [facility] at any time, as we are committed to meeting the health care needs of our community. Med/Other Pt SpecificInfo: No Change to Meds Scripts No Active Prescriptions or Reported Meds Disposition: 01 DISCHARGE HOME Condition: Kwabena Barfield MD Jun 25, 2017 19:13
[2017-06-25] MEDS ORDERED: LORazepam 0.5 MG TAB PO ONE (19:15)
--- NOTE | 2017-06-25 19:34 | RADRPT ---
EXAM DATE/TIME: 06/25/2017 18:49 [facility] COMPARISON: No previous studies available for comparison. INDICATIONS : Chest pain and right arm numbness. Patient passed out two days ago. MEDICAL HISTORY : Asthma. SURGICAL HISTORY : None. ENCOUNTER: Initial ACUITY: 2 days PAIN SCORE: 9/10 LOCATION: Bilateral chest Middle. FINDINGS: PA and lateral views of the chest demonstrate the lungs to be symmetrically aerated without evidence of mass, infiltrate or effusion. The cardiomediastinal contours are unremarkable. Osseous structure s are intact. CONCLUSION: Normal examination. Kodak Lynn MD on June 25, 2017 at 19:32 Board Certified Radiologist. This report was verified electronically.
[2017-06-25] MEDS ORDERED: SODIUM CHLORIDE 0.9% FLUSH 10 ML FLUSH IVF PRN (19:45)
[2017-06-25] MEDS ORDERED: SODIUM CHLORID 0.9% 500 ML INJ 500 ML IV ONE (19:45)
[2017-06-25] MEDS ORDERED: ASPIRIN 325 MG TAB PO ONE (19:45)
[2017-06-25 20:06] VITALS: RESP 18; O2SAT 100
[2017-06-25] MEDS ORDERED: IOHEXOL 350 MG/ML 10 ML VIAL (for RAD DIAG) IV ONE (20:28)
[2017-06-25 20:37] LABS: AUTOMATED NEUTROPHIL # 6.7 TH/MM3 (1.8-7.7); BASOPHIL # 0.1 TH/MM3 (0-0.2); BASOPHIL % 0.5 % (0.0-2.0); EOSINOPHIL # 0.1 TH/MM3 (0-0.4); EOSINOPHIL % 0.6 % (0.0-4.0); HEMATOCRIT 39.2 % (35.0-46.0); HEMO FLAGS DIFF FINAL; LYMPH % 28.7 % (9.0-44.0); MEAN CELL VOLUME 86.3 FL (80.0-100.0); MEAN CORPUSCULAR HEMOGLOBIN 28.7 PG (27.0-34.0); MEAN CORPUSCULAR HGB CONC 33.3 % (32.0-36.0); MONO % 6.1 % (0.0-8.0); NEUT % 64.1 % (16.0-70.0); PLATELET COUNT 270 TH/MM3 (150-450); RED BLOOD COUNT 4.55 MIL/MM3 (4.00-5.30); RED CELL DISTRIBUTION WIDTH 13.6 % (11.6-17.2); WHITE BLOOD COUNT 10.5 TH/MM3 (4.0-11.0)
--- NOTE | 2017-06-25 20:40 | RADRPT ---
EXAM DATE/TIME: 06/25/2017 20:25 [facility] COMPARISON: CT PULMONARY ANGIOGRAM, March 14, 2016, 17:02. INDICATIONS : Chest pain with elevated D-Dimer. IV CONTRAST: 70 cc Omnipaque 350 (iohexol) IV RADIATION DOSE: 22.95 CTDIvol (mGy) MEDICAL HISTORY : None SURGICAL HISTORY : None. ENCOUNTER: Initial ACUITY: 1 day PAIN SCALE: 7/10 LOCATION: Bilateral chest TECHNIQUE: Volumetric scanning of the chest was performed using a pulmonary embolism protocol MIP images were re constructed. Using automated exposure control and adjustment of the mA and/or kV according to patien t size, radiation dose was kept as low as reasonably achievable to obtain optimal diagnostic quality images. DICOM format image data is available electronically for review and comparison. Follow-up recommendations for detected pulmonary nodules are based at a minimum on nodule size and pa tient risk factors according to Fleischner Society Guidelines. FINDINGS: PULMONARY ARTERIES: No filling defects are seen in the pulmonary arteries through the segmental level. LUNGS: There is no consolidation or pneumothorax . No concerning pulmonary nodule is visualized. PLEURAE: There is no pleural thickening or pleural effusion. MEDIASTINUM: There is good visualization of the great vessels of the middle mediastinum. No evidence of mediastin al or hilar adenopathy/mass. MUSCULOSKELETAL: Within normal limits for patient age. MISCELLANEOUS: The visualized upper abdominal organs demonstrate no acute abnormality. CONCLUSION: No PE. Kodak Lynn MD on June 25, 2017 at 20:30 Board Certified Radiologist. This report was verified electronically.
[2017-06-25 20:55] LABS: ANION GAP 5 MEQ/L (5-15); BICARBONATE 27.8 MEQ/L (21.0-32.0); BLOOD UREA NITROGEN 8 MG/DL (7-18); CHLORIDE 105 MEQ/L (98-107); GLOMERULAR FILTRATION RATE 146 ML/MIN (>89); MAGNESIUM 2.2 MG/DL (1.5-2.5); POTASSIUM 3.3 MEQ/L (3.5-5.1); SODIUM (NA) 138 MEQ/L (136-145)
[2017-06-25 21:10] LABS: BETA HCG QUANT LESS THAN 1 MIU/ML (0-5); CREATINE KINASE 154 U/L (26-192)
[2017-06-25] MEDS ORDERED: POTASSIUM CHLORIDE 20 MEQ CONTROLLED RELEASE TAB PO ONE (21:15)
[2017-06-25 21:22] LABS: CKMB LESS THAN 0.5 NG/ML (0.5-3.6)
--- NOTE | 2017-06-26 09:14 | EKG ---
Date Performed: 06/25/2017 Time Performed: 17:52:58 PTAGE: 26 years EKG: Sinus rhythm POSSIBLE RIGHT VENTRICULAR CONDUCTION DELAY BORDERLINE ECG PREVIOUS TRACING : 03/14/2016 14.26 Compared to prior tracing no significant change DOCTOR: Abbe Leal Interpretating Date/Time 06/26/2017 09:04:20
== END 2017-06-25 22:05 | disposition home or self-care (01) ==
LOC: NEPD 17:06
DX: R25.1 Tremor, unspecified (principal); R07.9 Chest pain, unspecified; E87.6 Hypokalemia
CPT/HCPCS: 71020; 71275; 80048; 82550; 82552; 83735; 84484; 84702; 84703; 85025; 85379; 93005; 96360; 96361; 99285; J7040; Q9967

== ENCOUNTER 2017-08-03 11:58 | Emergency (ER) | payer MEDICAID ==
[~2017-08-03] VITALS: Ht 160 cm; Wt 61.5 kg
[2017-08-03 11:59] VITALS: BP 140/96; PULSE 114; RESP 20; TEMP 98.9; O2SAT 100
[2017-08-03 12:42] VITALS: BP 118/80; PULSE 90; RESP 18; O2SAT 99
--- NOTE | 2017-08-03 12:44 | PD ---
HPI Chief Complaint: Injury Time Seen by Provider: 12:25 Travel History International Travel<30 days: No Contact w/Intl Traveler<30days: No Traveled to known affect area: No History of Present Illness HPI Patient is a 26 year old female presents to the emergency department for evaluation of left shoulder and neck pain after sustaining a fall from 5-6 feet off ladder. Patient states she fell onto concrete. She denies any head injury or loss of consciousness. She denies any headache, nausea, vomiting, abdominal pain. She reports feeling dizzy and short of breath. Patient states her pain is a 10 out of 10, she reports being unable to move her left shoulder. Patient denies any significant past medical history. PFSH Past Medical History Medical History: Denies Significant Hx Hx Anticoagulant Therapy: No Cardiovascular Problems: No Chemotherapy: No Cerebrovascular Accident: No Diabetes: No Diminished Hearing: No GERD: Yes Respiratory: No Immunizations Current: Yes Tetanus Vaccination: Unknown ?: Not LMP: 07/30/17 Past Surgical History Hysterectomy: No Other Surgery: Yes (lower leg fx in 09/2016) Social History Alcohol Use: Yes (OCC) Tobacco Use: No Substance Use: No Allergies-Medications (Allergen,Severity, Reaction): Coded Allergies: penicillin G (Unverified Allergy, Intermediate, Hives, 08/03/17) Reported Meds & Prescriptions Reported Meds & Active Scripts Active Tramadol (Tramadol HCl) 50 Mg Tab 50 Mg PO Q6H PRN Flexeril (Cyclobenzaprine HCl) 10 Mg Tab 10 Mg PO TID PRN Ibuprofen 800 Mg Tab 800 Mg PO Q6HR PRN Review of Systems Except as stated in HPI: all other systems reviewed are Neg HENT: Positive: Neck Pain, No: Headaches, Lightheadedness Cardiovascular: No: Chest Pain or Discomfort Respiratory: Positive: Shortness of Breath Gastrointestinal: No: Nausea, Vomiting, Abdominal Pain Musculoskeletal: Positive: Limited ROM, Pain Neurologic: Positive: Dizziness Physical Exam Narrative GENERAL: Well-developed, well-nourished, alert female. Appears uncomfortable, in no acute distress. SKIN: Warm and dry. HEAD: Atraumatic. Normocephalic. EYES: Pupils equal and round. No scleral icterus. No injection or drainage. ENT: No nasal bleeding or discharge. Mucous membranes pink and moist. NECK: Trachea midline. No JVD. CARDIOVASCULAR: Tachycardic. RESPIRATORY: No accessory muscle use. Clear to auscultation. Breath sounds equal bilaterally. GASTROINTESTINAL: Abdomen soft, non-tender, nondistended. Hepatic and splenic margins not palpable. MUSCULOSKELETAL: Extremities without clubbing, cyanosis, or edema. No obvious deformities. Tenderness palpation of her thoracic spine, no step-off noted. Normal range of motion in left arm secondary to pain. 2+ radial pulses bilaterally. NEUROLOGICAL: Awake and alert. No obvious cranial nerve deficits. Motor grossly within normal limits. Five out of 5 muscle strength in the arms and legs. Normal speech. PSYCHIATRIC: Appropriate mood and affect; insight and judgment normal. Data Data Last Documented VS Vital Signs Date Time Temp Pulse Resp B/P (MAP) Pulse Ox O2 Delivery O2 Flow Rate FiO2 08/03/17 12:42 90 18 118/80 (93) 99 Room Air 08/03/17 11:59 98.9 Orders Orders Shoulder, Complete (>2vws) (08/03/17 ) Ct Cerv Spine W/O Contrast (08/03/17 ) Ct Thorax/ Chest W Iv Contrast (08/03/17 ) Ct Lumb Spine W/O Contrast (08/03/17 ) Ct Abd/Pel W Iv Contrast(Rout) (08/03/17 ) Iv Access Insert/Monitor (08/03/17 12:36) Morphine Inj (Morphine Inj) (08/03/17 12:45) Ondansetron Inj (Zofran Inj) (08/03/17 12:45) Sodium Chlor 0.9% 1000 Ml Inj (Ns 1000 M (08/03/17 12:45) Ct Brain W/O Iv Contrast(Rout) (08/03/17 ) Ed Urine Pregnancytest Poc (08/03/17 12:40) Ct Thor Spine W/O Contrast (08/03/17 ) Chest, Single Ap (08/03/17 ) Ketorolac Inj (Toradol Inj) (08/03/17 14:30) Orphenadrine Inj (Norflex Inj) (08/03/17 14:30) Iohexol 350 Inj (Omnipaque 350 Inj) (08/03/17 14:00) Splint Or Brace Apply/Monitor (08/03/17 15:03) MDM Medical Decision Making Medical Screen Exam Complete: Yes Emergency Medical Condition: Yes Interpretation(s) Last Impressions Thoracic Spine CT 08/03/17 Signed Impressions: Service Date/Time: Thursday, August 03, 2017 13:25 - CONCLUSION: Negative trauma CT Dennis Duran MD Shoulder X-Ray 08/03/17 Signed Impressions: Service Date/Time: Thursday, August 03, 2017 13:03 - CONCLUSION: Unremarkable examination of the left shoulder. Dennis Duran MD Lumbar Spine CT 08/03/17 Signed Impressions: Service Date/Time: Thursday, August 03, 2017 13:25 - CONCLUSION: Negative trauma study. Dennis Duran MD Head CT 08/03/17 Signed Impressions: Service Date/Time: Thursday, August 03, 2017 13:08 - CONCLUSION: Negative trauma CT Dennis Duran MD Chest X-Ray 08/03/17 Signed Impressions: Service Date/Time: Thursday, August 03, 2017 13:02 - CONCLUSION: No acute cardiopulmonary process. No pneumothorax. Zane Jc MD Chest CT 08/03/17 Signed Impressions: Service Date/Time: Thursday, August 03, 2017 13:25 - CONCLUSION: 1. Negative trauma CT. 2. Probable small gallstones. Dennis Duran MD Cervical Spine CT 08/03/17 Signed Impressions: Service Date/Time: Thursday, August 03, 2017 13:08 - CONCLUSION: Negative trauma CT. Dennis Duran MD Abdomen/Pelvis CT 08/03/17 0000 Signed Impressions: Service Date/Time: Thursday, August 03, 2017 13:25 - CONCLUSION: Negative trauma CT Dennis Duran MD Vital Signs Date Time Temp Pulse Resp B/P (MAP) Pulse Ox O2 Delivery O2 Flow Rate FiO2 08/03/17 12:35 98 18 100 Room Air 08/03/17 11:59 98.9 114 20 140/96 (111) 100 Room Air Differential Diagnosis Fracture versus contusion versus hemorrhage versus sprain versus strain versus dislocation versus other Narrative Course Patient is a 26-year-old female brought in by private vehicle for evaluation of left shoulder and neck pain after sustaining a mechanical fall off of a ladder from approximately 5-6 feet. Patient is guarding left shoulder. Urine and imaging ordered and pending. No focal deficits noted on exam otherwise. CT scan of the brain, cervical spine, lumbar spine, thoracic spine, abdomen and pelvis, and chest, which were read by the radiologist are negative for acute abnormalities. Chest x-ray shows no acute disease X-ray of the left shoulder is negative for fracture or dislocation. Patient was given Toradol and Norflex, she reports small amount of improvement in her pain. Patient was given sling for comfort however she was strongly advised to keep her arm out of the sling and continue range of motion exercises to avoid a frozen shoulder. She was encouraged to alternate heat and ice the affected area, avoid bed rest, avoid exacerbating activities. Patient was advised that she may feel more sore tomorrow as muscles tend to tighten with rest overnight. She was encouraged to follow-up with her primary doctor. She is advised to return to emergency department medially for any new or worsening symptoms. Patient verbalizes understanding of these discharge instructions. Patient stable for discharge. Diagnosis Primary Impression: Fall Qualified Codes: W19.XXXA - Unspecified fall, initial encounter Additional Impression: Shoulder joint pain Qualified Codes: M25.512 - Pain in left shoulder Referrals: Primary Care Physician 3 days Patient Instructions: Arthralgia (ED), Contusion in Adults (ED), General Instructions, Shoulder Pain (ED) Additional Instructions: Follow-up with her primary doctor Alternate heat and ice the affected area, continue range of motion exercises, avoid exacerbating activities, avoid bed rest Return to emergency department for any new or worsening symptoms Do not drive or operate machinery while taking narcotic pain medication Med/Other Pt SpecificInfo: Prescription(s) given Scripts Tramadol (Tramadol) 50 Mg Tab 50 MG PO Q6H Y for PAIN, #10 TAB 0 Refills Prov: Keshia Timmons 08/03/17 Cyclobenzaprine (Flexeril) 10 Mg Tab 10 MG PO TID Y for MUSCLE SPASM, #30 TAB 0 Refills Prov: Keshia Timmons 08/03/17 Ibuprofen (Ibuprofen) 800 Mg Tab 800 MG PO Q6HR Y for PAIN, #40 TAB 0 Refills Prov: Keshia Timmons 08/03/17 Disposition: 01 DISCHARGE HOME Condition: Stable Keshia Timmons Aug 03, 2017 12:44
[2017-08-03] MEDS ORDERED: SODIUM CHLOR 0.9% 1000 ML INJ 1,000 ML IV ONE (12:45)
[2017-08-03] MEDS ORDERED: ONDANSETRON HCL 4 MG/2 ML VIAL IV PUSH ONE (12:45)
[2017-08-03] MEDS ORDERED: MORPHINE SULFATE 4 MG/ML INJ IV PUSH ONE (12:45)
--- NOTE | 2017-08-03 13:19 | RADRPT ---
EXAM DATE/TIME: 08/03/2017 13:03 [facility] COMPARISON: SHOULDER LEFT COMPLETE (>2VWS), July 14, 2016, 8:34. INDICATIONS : Left shoulder pain, trauma MEDICAL HISTORY : None. SURGICAL HISTORY : None. ENCOUNTER: Initial ACUITY: 1 day PAIN SCORE: 5/10 LOCATION: Left Shoulder FINDINGS: Multiple view examination of the left shoulder demonstrates no evidence of fracture or dislocation. The glenohumeral and acromioclavicular joints are maintained. There is normal range of motion betwee n internal and external rotation. Bony mineralization is normal. CONCLUSION: Unremarkable examination of the left shoulder. Dennis Duran MD on August 03, 2017 at 13:17 Board Certified Radiologist. This report was verified electronically.
--- NOTE | 2017-08-03 13:23 | RADRPT ---
EXAM DATE/TIME: 08/03/2017 13:02 [facility] COMPARISON: CHEST SINGLE AP, March 14, 2016, 14:31. INDICATIONS : Left shoulder pain, trauma MEDICAL HISTORY : None. SURGICAL HISTORY : None. ENCOUNTER: Initial ACUITY: 1 day PAIN SCORE: 5/10 LOCATION: Left chest FINDINGS: A single view of the chest demonstrates the lungs to be symmetrically aerated without evidence of mas s, infiltrate or effusion. The cardiomediastinal contours are unremarkable. Osseous structures are intact. CONCLUSION: No acute cardiopulmonary process. No pneumothorax. Zane Jc MD on August 03, 2017 at 13:18 Board Certified Radiologist. This report was verified electronically.
[2017-08-03] MEDS ORDERED: IOHEXOL 350 MG/ML 10 ML VIAL (for RAD DIAG) IVCONTRAST ONE (14:00)
--- NOTE | 2017-08-03 14:16 | RADRPT ---
EXAM DATE/TIME: 08/03/2017 13:08 [facility] COMPARISON: CT BRAIN W/O CONTRAST, July 12, 2016, 20:25. INDICATIONS : Trauma, fall from ladder today. RADIATION DOSE: 56.35 CTDIvol (mGy) MEDICAL HISTORY : None SURGICAL HISTORY : None. ENCOUNTER: Initial ACUITY: 1 day PAIN SCALE: 0/10 LOCATION: Bilateral head TECHNIQUE: Multiple contiguous axial images were obtained of the head. Using automated exposure control and adj ustment of the mA and/or kV according to patient size, radiation dose was kept as low as reasonably a chievable to obtain optimal diagnostic quality images. DICOM format image data is available electro nically for review and comparison. FINDINGS: CEREBRUM: The ventricles are normal for age. No evidence of midline shift, mass lesion, hemorrhage or acute in farction. No extra-axial fluid collections are seen. POSTERIOR FOSSA: The cerebellum and brainstem are intact. The 4th ventricle is midline. The cerebellopontine angle i s unremarkable. EXTRACRANIAL: The visualized portion of the orbits is intact. SKULL: The calvaria is intact. No evidence of skull fracture. CONCLUSION: Negative trauma CT Dennis Duran MD on August 03, 2017 at 14:14 Board Certified Radiologist. This report was verified electronically.
--- NOTE | 2017-08-03 14:27 | RADRPT ---
EXAM DATE/TIME: 08/03/2017 13:08 [facility] COMPARISON: CT CERVICAL SPINE W/O CONTRAST, July 12, 2016, 20:25. INDICATIONS : Trauma, fall from ladder today. RADIATION DOSE: 43.05 CTDIvol (mGy) MEDICAL HISTORY : None SURGICAL HISTORY : None. ENCOUNTER: Initial ACUITY: 1 day PAIN SCALE: 5/10 LOCATION: Bilateral neck TECHNIQUE: Volumetric scanning of the cervical spine was performed. Multiplanar reconstructions i n the sagittal, coronal and oblique axial planes were performed. Using automated exposure control a nd adjustment of the mA and/or kV according to patient size, radiation dose was kept as low as reason ably achievable to obtain optimal diagnostic quality images. DICOM format image data is available e lectronically for review and comparison. FINDINGS: The sagittal reconstructions demonstrate normal alignment and normal prevertebral soft tissues. The d ens is intact and there is a normal atlantoaxial relationship. Mild reversal of the normal cervical l ordosis is again noted. The axial images demonstrate that the vertebral bodies and posterior elements are intact. The soft ti ssues are within normal limits. There is no evidence of acute fracture or malalignment. CONCLUSION: Negative trauma CT. Dennis Duran MD on August 03, 2017 at 14:24 Board Certified Radiologist. This report was verified electronically.
--- NOTE | 2017-08-03 14:29 | RADRPT ---
EXAM DATE/TIME: 08/03/2017 13:25 [facility] COMPARISON: No previous studies available for comparison. INDICATIONS : Trauma, fall from ladder today. IV CONTRAST: 70 cc Omnipaque 350 (iohexol) IV ; Cumulative dose for multiple exams. ORAL CONTRAST: No oral contrast ingested. RADIATION DOSE: 9.96 CTDIvol (mGy) ; Combined studies - Thorax/Abdomen/Pelvis MEDICAL HISTORY : None SURGICAL HISTORY : None. ENCOUNTER: Initial ACUITY: 1 day PAIN SCALE: 0/10 LOCATION: Bilateral abdomen TECHNIQUE: Volumetric scanning of the abdomen and pelvis was performed. Using automated exposure control and ad justment of the mA and/or kV according to patient size, radiation dose was kept as low as reasonably achievable to obtain optimal diagnostic quality images. DICOM format image data is available electro nically for review and comparison. FINDINGS: LOWER LUNGS: The visualized lower lungs are clear. LIVER: Homogeneous density without lesion. There is no dilation of the biliary tree. There are multiple sma ll soft tissue foci within the gallbladder which could indicate small stones. SPLEEN: Normal size without lesion. PANCREAS: Within normal limits. KIDNEYS: Normal in size and shape. There is no mass, stone or hydronephrosis. ADRENAL GLANDS: Within normal limits. VASCULAR: There is no aortic aneurysm. BOWEL/MESENTERY: The stomach, small bowel, and colon demonstrate no acute abnormality. There is no free intraperitone al air or fluid. ABDOMINAL WALL: Within normal limits. RETROPERITONEUM: There is no lymphadenopathy. BLADDER: No wall thickening or mass. REPRODUCTIVE: Within normal limits. INGUINAL: There is no lymphadenopathy or hernia. MUSCULOSKELETAL: Within normal limits for patient age. CONCLUSION: Negative trauma CT Dennis Duran MD on August 03, 2017 at 14:26 Board Certified Radiologist. This report was verified electronically.
[2017-08-03] MEDS ORDERED: ORPHENADRINE INJ 60 MG/2 ML AMP IV ONE (14:30)
[2017-08-03] MEDS ORDERED: KETOROLAC TROMETHAMINE 30 MG/ML (IVP) VIAL IV PUSH ONE (14:30)
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
[2017-08-03] MEDS ORDERED: CYCL1TAB29 PO (15:01)
[2017-08-03] MEDS ORDERED: TRAM50TA PO (15:01)
[2017-08-03] MEDS ORDERED: IBUP800T23 PO (15:01)
== END 2017-08-03 15:31 | disposition home or self-care (01) ==
LOC: NEPC 11:58
DX: M25.512 Pain in left shoulder (principal); M54.2 Cervicalgia; W11.XXXA Fall on and from ladder, initial encounter; Y99.8 Other external cause status
CPT/HCPCS: 70450; 71010; 71260; 72125; 72128; 72131; 73030; 74177; 84703; 96374; 96375; 99285; J1885; J2270; J2360; J2405; J7030; Q9967

== ENCOUNTER 2018-02-22 15:36 | Emergency (ER) | payer MEDICAID ==
[~2018-02-22] VITALS: Ht 160 cm; Wt 63.0 kg
[~2018-02-22 15:36] MED LIST changes: -CLIN1CAP6 PO; +CYCL10TA PO; +IBUP1TAB7 PO; -IBUP800T23 PO; +TRAM50TA PO
[2018-02-22 15:46] VITALS: BP 115/71; PULSE 77; RESP 18; TEMP 98.5; O2SAT 100
[2018-02-23] MEDS ORDERED: BACT800T5 PO (18:16)
== END 2018-02-22 18:56 | disposition left against medical advice (07) ==
LOC: NED 15:36
DX: R03.1 Nonspecific low blood-pressure reading (principal); R42 Dizziness and giddiness; H53.8 Other visual disturbances; Z53.21 Procedure and treatment not carried out due to patient leaving prior to being seen by health care provider
CPT/HCPCS: 99281

== ENCOUNTER 2018-02-23 15:29 | Emergency (ER) | payer MEDICAID ==
[2018-02-23 15:44] VITALS: BP 143/80; PULSE 111; RESP 18; TEMP 98.5; O2SAT 100
[2018-02-23] MEDS ORDERED: SODIUM CHLORIDE 0.9% FLUSH 10 ML FLUSH IVF PRN (16:00)
--- NOTE | 2018-02-23 16:18 | RADRPT ---
EXAM DATE/TIME: 02/23/2018 16:06 [facility] COMPARISON: CHEST PA & LAT, June 25, 2017, 18:49. INDICATIONS : Left sided chest pain and dizziness for one day. MEDICAL HISTORY : None. SURGICAL HISTORY : None. ENCOUNTER: Initial ACUITY: 1 day PAIN SCORE: 6/10 LOCATION: Left chest FINDINGS: PA and lateral views of the chest demonstrate the lungs to be symmetrically aerated without evidence of mass, infiltrate or effusion. The cardiomediastinal contours are unremarkable. Osseous structure s are intact. CONCLUSION: No acute disease. Aung Fernandez MD on February 23, 2018 at 16:16 Board Certified Radiologist. This report was verified electronically.
[2018-02-23 16:20] LABS: AUTOMATED NEUTROPHIL # 7.3 TH/MM3 (1.8-7.7); BASOPHIL # 0.1 TH/MM3 (0-0.2); BASOPHIL % 0.8 % (0.0-2.0); EOSINOPHIL % 0.5 % (0.0-4.0); HEMATOCRIT 39.3 % (35.0-46.0); HEMOGLOBIN 13.1 GM/DL (11.6-15.3); LYMPHOCYTE # 1.8 TH/MM3 (1.0-4.8); MEAN CELL VOLUME 86.5 FL (80.0-100.0); MEAN CORPUSCULAR HEMOGLOBIN 28.8 PG (27.0-34.0); MEAN CORPUSCULAR HGB CONC 33.3 % (32.0-36.0); MEAN PLATELET VOLUME 9.2 FL (7.0-11.0); MONO % 4.6 % (0.0-8.0); MONOCYTE # 0.4 TH/MM3 (0-0.9); NEUT % 75.1 % (16.0-70.0); PLATELET COUNT 259 TH/MM3 (150-450); RED BLOOD COUNT 4.54 MIL/MM3 (4.00-5.30); RED CELL DISTRIBUTION WIDTH 13.7 % (11.6-17.2); WHITE BLOOD COUNT 9.7 TH/MM3 (4.0-11.0)
[2018-02-23 16:28] LABS: INTERNATIONAL NORMALIZED RATIO 1.1 RATIO; PROTHROMBIN TIME - PATIENT 10.9 SEC (9.8-11.6)
[2018-02-23 16:34] LABS: ALBUMIN 3.7 GM/DL (3.4-5.0); ALT (GPT) 16 U/L (10-53); AST (GOT) 11 U/L (15-37); BICARBONATE 27.2 MEQ/L (21.0-32.0); BLOOD UREA NITROGEN 8 MG/DL (7-18); CALCIUM 8.8 MG/DL (8.5-10.1); CHLORIDE 107 MEQ/L (98-107); CREATININE 0.69 MG/DL (0.50-1.00); GLOMERULAR FILTRATION RATE 123 ML/MIN (>89); GLUCOSE,RANDOM 92 MG/DL (74-106); SODIUM (NA) 141 MEQ/L (136-145)
[2018-02-23 16:38] LABS: ALKALINE PHOSPHATASE 86 U/L (45-117); TOTAL BILIRUBIN ADULT 0.3 MG/DL (0.2-1.0); TOTAL PROTEIN 8.3 GM/DL (6.4-8.2); TROPONIN I LESS THAN 0.02 NG/ML (0.02-0.05)
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
--- NOTE | 2018-02-23 17:55 | RADRPT ---
EXAM DATE/TIME: 02/23/2018 17:10 [facility] COMPARISON: CT BRAIN W/O CONTRAST, August 03, 2017, 13:08. INDICATIONS : Dizziness,visual changes nausea,rihgt hand tremors RADIATION DOSE: 56.35 CTDIvol (mGy) MEDICAL HISTORY : None SURGICAL HISTORY : None. ENCOUNTER: Initial ACUITY: 1 day PAIN SCALE: 7/10 LOCATION: cranial TECHNIQUE: Multiple contiguous axial images were obtained of the head. Using automated exposure control and adj ustment of the mA and/or kV according to patient size, radiation dose was kept as low as reasonably a chievable to obtain optimal diagnostic quality images. DICOM format image data is available electro nically for review and comparison. FINDINGS: CEREBRUM: The ventricles are normal for age. No evidence of midline shift, mass lesion, hemorrhage or acute in farction. No extra-axial fluid collections are seen. POSTERIOR FOSSA: The cerebellum and brainstem are intact. The 4th ventricle is midline. The cerebellopontine angle i s unremarkable. EXTRACRANIAL: The visualized portion of the orbits is intact. SKULL: The calvaria is intact. No evidence of skull fracture. CONCLUSION: Negative exam. No change from prior. Zane Jc MD on February 23, 2018 at 17:53 Board Certified Radiologist. This report was verified electronically.
[2018-02-23 18:00] LABS: BILIRUBIN, URINE NEG (NEG); BLOOD, URINE NEG (NEG); GLUCOSE,URINE NEG (NEG); KETONE, URINE NEG (NEG); MUCUS URINE MANY /lpf (OCC); NITRITE,URINE NEG (NEG); PH, URINE 6.5 (5.0-8.5); SQUAMOUS EPITHELIAL CELL URINE 45 /hpf (0-5); URINE COLOR YELLOW (YELLW/STRAW); URINE LEUKOCYTE ESTERASE LARGE (NEG)
[2018-02-23] MEDS ORDERED: KETOROLAC TROMETHAMINE 30 MG/ML (IVP) VIAL IV PUSH ONE (18:15)
[2018-02-23] MEDS ORDERED: IBUPROFEN 600 MG TAB PO ONE (18:15)
[2018-02-23] MEDS ORDERED: SULFAMETHOXAZOLE-TRIMETHOPRIM DS 800-160 MG TAB PO ONE (18:15)
[2018-02-23] MEDS ORDERED: BACT800T5 PO (18:16)
--- NOTE | 2018-02-24 15:14 | EKG ---
Date Performed: 02/23/2018 Time Performed: 16:00:38 PTAGE: 27 years EKG: SINUS TACHYCARDIA POSSIBLE LEFT ATRIAL ENLARGEMENT POSSIBLE RIGHT VENTRICULAR CONDUCTION DE LAY ABNORMAL RHYTHM ECG Since the previous tracing, no significant change noted NO PREVIOUS TRACING DOCTOR: Js Veliz Interpretating Date/Time 02/24/2018 15:11:57
== END 2018-02-23 18:29 | disposition home or self-care (01) ==
LOC: NEPD 15:29
DX: N39.0 Urinary tract infection, site not specified (principal); R07.89 Other chest pain; R25.1 Tremor, unspecified; R42 Dizziness and giddiness; R53.1 Weakness; R94.31 Abnormal electrocardiogram [ECG] [EKG]; Z88.0 Allergy status to penicillin
CPT/HCPCS: 70450; 71046; 80053; 80307; 81001; 84484; 84703; 85025; 85610; 85730; 87086; 93005; 99285

== ENCOUNTER 2018-03-08 06:56 | Emergency (ER) | payer MEDICAID ==
[~2018-03-08] VITALS: Ht 160 cm; Wt 60.0 kg
[~2018-03-08 06:56] MED LIST changes: +BACT800T5 PO; -CYCL10TA PO; -IBUP1TAB7 PO; -TRAM50TA PO
[2018-03-08 07:11] VITALS: BP 113/71; PULSE 95; RESP 16; TEMP 98.3
[2018-03-08] MEDS ORDERED: ACETAMINOPHEN/HYDROcodone 325 MG/5 MG TAB PO ONE (07:30)
[2018-03-08] MEDS ORDERED: TRAM50 PO (07:40)
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
[2018-03-08 08:45] VITALS: RESP 20
== END 2018-03-08 08:46 | disposition home or self-care (01) ==
LOC: NEPE 06:56
DX: S40.022A Contusion of left upper arm, initial encounter (principal); K21.9 Gastro-esophageal reflux disease without esophagitis; V28.5XXA Motorcycle passenger injured in noncollision transport accident in traffic accident, initial encounter; Z88.0 Allergy status to penicillin
CPT/HCPCS: 73060; 73090; 99283

== ENCOUNTER 2018-04-05 21:59 | Emergency (ER) | payer MEDICAID ==
[~2018-04-05] VITALS: Ht 165.1 cm; Wt 62.0 kg
[2018-04-05 22:20] VITALS: BP 110/71; PULSE 82; RESP 20; TEMP 98.7; O2SAT 100
[2018-04-05] MEDS ORDERED: SODIUM CHLOR 0.9% 1000 ML INJ 1,000 ML IV SCH (22:40)
--- NOTE | 2018-04-05 22:42 | PD ---
HPI Chief Complaint: Abdominal Pain Time Seen by Provider: 22:39 Travel History International Travel<30 days: No Contact w/Intl Traveler<30days: No Traveled to known affect area: No History of Present Illness HPI 37-year-old female presents to the emergency department by private transportation for evaluation of gallbladder disease. Patient states in 2012 she has been diagnosed with gallstones. Patient has been seen several times in various emergency departments for gallbladder attacks. Patient states this attack is severe has had nausea no vomiting ate a ham and cheese sandwich prior to onset of symptoms. Patient is known about this since 2013 has never seen a surgeon to discuss elective removal of her gallbladder. Patient was seen approximate 1 year ago and was identified to have gallstones. Patient is unable to identify exacerbating or alleviating factors but is taken no medication for symptom relief. PFSH Past Medical History Narrative Medical Gallstones; nursing notes reviewed Hx Anticoagulant Therapy: No Cardiovascular Problems: No Chemotherapy: No Cerebrovascular Accident: No Diabetes: No Diminished Hearing: No GERD: Yes Respiratory: No Immunizations Current: Yes Tetanus Vaccination: Unknown ?: Not LMP: 4-20-18 : 3 Para: 3 Miscarriage: 0 : 0 Past Surgical History Hysterectomy: No Other Surgery: Yes (lower leg fx in 09/2016) Social History Alcohol Use: Yes (occ) Tobacco Use: No Substance Use: No Allergies-Medications (Allergen,Severity, Reaction): Coded Allergies: penicillin G (Unverified Allergy, Intermediate, Hives, 04/05/18) Reported Meds & Prescriptions Reported Meds & Active Scripts Active No Active Prescriptions or Reported Medications Review of Systems Except as stated in HPI: all other systems reviewed are Neg Physical Exam Narrative GENERAL: Well-developed well-nourished female no acute distress or respiratory distress SKIN: Warm and dry. HEAD: Normocephalic. EYES: No scleral icterus. No injection or drainage. NECK: Supple, trachea midline. No JVD or lymphadenopathy. CARDIOVASCULAR: Regular rate and rhythm without murmurs, gallops, or rubs. RESPIRATORY: Breath sounds equal bilaterally. No accessory muscle use. GASTROINTESTINAL: Abdomen soft, non-tender, nondistended. MUSCULOSKELETAL: No cyanosis, or edema. BACK: Nontender without obvious deformity. No CVA tenderness. Data Data Last Documented VS Vital Signs Date Time Temp Pulse Resp B/P (MAP) Pulse Ox O2 Delivery O2 Flow Rate FiO2 5/28/18 03:12 04/05/18 22:20 98.7 82 20 100 Room Air Orders Orders Complete Blood Count With Diff (04/05/18 22:40) Comprehensive Metabolic Panel (04/05/18 22:40) Lipase (04/05/18 22:40) Urinalysis - C+S If Indicated (04/05/18 22:40) Iv Access Insert/Monitor (04/05/18 22:40) Ecg Monitoring (04/05/18 22:40) Oximetry (04/05/18 22:40) Ondansetron Inj (Zofran Inj) (04/05/18 22:45) Sodium Chlor 0.9% 1000 Ml Inj (Ns 1000 M (04/05/18 22:40) Sodium Chloride 0.9% Flush (Ns Flush) (04/05/18 22:45) Ed Urine Pregnancytest Poc (04/05/18 22:40) NPO (04/05/18 22:40) Ketorolac Inj (Toradol Inj) (04/06/18 00:15) Us Abdomen Gallbladder (04/06/18 ) Ed Discharge Order (04/06/18 02:50) Labs Laboratory Tests Test 04/05/18 22:49 04/05/18 22:57 Urine Color YELLOW Urine Turbidity HAZY Urine pH 7.0 Urine Specific Wiggins 1.030 Urine Protein TRACE mg/dL Urine Glucose (UA) NEG mg/dL Urine Ketones TRACE mg/dL Urine Occult Blood NEG Urine Nitrite NEG Urine Bilirubin NEG Urine Urobilinogen 4.0 MG/DL Urine Leukocyte Esterase TRACE Urine RBC 2 /hpf Urine WBC 4 /hpf Urine Squamous Epithelial Cells 6 /hpf Urine Amorphous Sediment RARE Urine Mucus FEW /lpf Microscopic Urinalysis Comment CULT NOT INDICATED White Blood Count 11.8 TH/MM3 Red Blood Count 4.31 MIL/MM3 Hemoglobin 12.3 GM/DL Hematocrit 36.6 % Mean Corpuscular Volume 84.9 FL Mean Corpuscular Hemoglobin 28.5 PG Mean Corpuscular Hemoglobin Concent 33.6 % Red Cell Distribution Width 13.5 % Platelet Count 286 TH/MM3 Mean Platelet Volume 9.2 FL Neutrophils (%) (Auto) 70.3 % Lymphocytes (%) (Auto) 21.4 % Monocytes (%) (Auto) 6.9 % Eosinophils (%) (Auto) 0.6 % Basophils (%) (Auto) 0.8 % Neutrophils # (Auto) 8.3 TH/MM3 Lymphocytes # (Auto) 2.5 TH/MM3 Monocytes # (Auto) 0.8 TH/MM3 Eosinophils # (Auto) 0.1 TH/MM3 Basophils # (Auto) 0.1 TH/MM3 CBC Comment DIFF FINAL Differential Comment Blood Urea Nitrogen 10 MG/DL Creatinine 0.73 MG/DL Random Glucose 102 MG/DL Total Protein 7.9 GM/DL Albumin 3.4 GM/DL Calcium Level 8.4 MG/DL Alkaline Phosphatase 80 U/L Aspartate Amino Transf (AST/SGOT) 49 U/L Alanine Aminotransferase (ALT/SGPT) 43 U/L Total Bilirubin 0.3 MG/DL Sodium Level 140 MEQ/L Potassium Level 3.8 MEQ/L Chloride Level 106 MEQ/L Carbon Dioxide Level 27.0 MEQ/L Anion Gap 7 MEQ/L Estimat Glomerular Filtration Rate 116 ML/MIN Lipase 138 U/L MDM Medical Decision Making Medical Screen Exam Complete: Yes Emergency Medical Condition: Yes Medical Record Reviewed: Yes Differential Diagnosis Biliary colic cholecystitis peptic ulcer disease gastritis pancreatitis bowel syndrome colitis enteritis Narrative Course Specimens collected and sent for resulting patient kept n.p.o. and administered one-time dose of Zofran and Toradol Lab values are found all be in normal range discussed with the patient states pain is still severe therefore ultrasound ordered Ultrasound shows contracted gallbladder Patient is informed that she needs to follow-up with a surgeon as an outpatient and discussed with the surgeon elective removal of her gallbladder and she needs to change her diet from fatty foods. Patient was given description of fatty meals fatty foods and fried foods until do not take these foods on a routine basis as this will exacerbate her gallbladder symptoms. Patient acknowledged understanding is stable for outpatient management. Diagnosis Primary Impression: Gallbladder colic Referrals: General Surgeon call for appointment [employer] Assistant Surgeon Dr Diaz Patient Instructions: General Instructions Additional Instructions: Follow low-fat diet avoid fried and fatty foods Follow clear liquid diet for next 12-24 hours advance as tolerated bland/brat diet and regular diet avoiding fried and fatty foods May take acetaminophen or ibuprofen per package directions Follow-up with primary care provider Return the emergency department for any concerns or change in condition Scripts No Active Prescriptions or Reported Meds Disposition: 01 DISCHARGE HOME Condition: Stable Deanna Dugan MD April 05, 2018 22:42
[2018-04-05] MEDS ORDERED: SODIUM CHLORIDE 0.9% FLUSH 10 ML FLUSH IV FLUSH PRN (22:45)
[2018-04-05] MEDS ORDERED: ONDANSETRON HCL 4 MG/2 ML VIAL IVP ONE (22:45)
[2018-04-05 23:06] LABS: AUTOMATED NEUTROPHIL # 8.3 TH/MM3 (1.8-7.7); BASOPHIL # 0.1 TH/MM3 (0-0.2); BASOPHIL % 0.8 % (0.0-2.0); EOSINOPHIL # 0.1 TH/MM3 (0-0.4); EOSINOPHIL % 0.6 % (0.0-4.0); HEMATOCRIT 36.6 % (35.0-46.0); HEMOGLOBIN 12.3 GM/DL (11.6-15.3); LYMPH % 21.4 % (9.0-44.0); LYMPHOCYTE # 2.5 TH/MM3 (1.0-4.8); MEAN CELL VOLUME 84.9 FL (80.0-100.0); MEAN CORPUSCULAR HEMOGLOBIN 28.5 PG (27.0-34.0); MEAN CORPUSCULAR HGB CONC 33.6 % (32.0-36.0); MEAN PLATELET VOLUME 9.2 FL (7.0-11.0); MONO % 6.9 % (0.0-8.0); MONOCYTE # 0.8 TH/MM3 (0-0.9); NEUT % 70.3 % (16.0-70.0); PLATELET COUNT 286 TH/MM3 (150-450); RED BLOOD COUNT 4.31 MIL/MM3 (4.00-5.30); RED CELL DISTRIBUTION WIDTH 13.5 % (11.6-17.2); WHITE BLOOD COUNT 11.8 TH/MM3 (4.0-11.0)
[2018-04-05 23:23] LABS: AMORPHOUS SEDIMENT, URINE RARE; BILIRUBIN, URINE NEG (NEG); BLOOD, URINE NEG (NEG); GLUCOSE,URINE NEG (NEG); KETONE, URINE TRACE mg/dL (NEG); MUCUS URINE FEW /lpf (OCC); NITRITE,URINE NEG (NEG); SQUAMOUS EPITHELIAL CELL URINE 6 /hpf (0-5); URINE COLOR YELLOW (YELLW/STRAW); URINE LEUKOCYTE ESTERASE TRACE (NEG)
[2018-04-05 23:33] LABS: ALKALINE PHOSPHATASE 80 U/L (45-117); TOTAL BILIRUBIN ADULT 0.3 MG/DL (0.2-1.0); TOTAL PROTEIN 7.9 GM/DL (6.4-8.2)
[2018-04-05 23:34] LABS: ALBUMIN 3.4 GM/DL (3.4-5.0); ALT (GPT) 43 U/L (10-53); AST (GOT) 49 U/L (15-37); BLOOD UREA NITROGEN 10 MG/DL (7-18); CALCIUM 8.4 MG/DL (8.5-10.1); CHLORIDE 106 MEQ/L (98-107); CREATININE 0.73 MG/DL (0.50-1.00); GLOMERULAR FILTRATION RATE 116 ML/MIN (>89); GLUCOSE,RANDOM 102 MG/DL (74-106); SODIUM (NA) 140 MEQ/L (136-145)
[2018-04-06] MEDS ORDERED: KETOROLAC TROMETHAMINE 30 MG/ML (IVP) VIAL IV PUSH ONE (00:15)
--- NOTE | 2018-04-06 02:21 | RADRPT ---
EXAM DATE: 04/06/2018 2:14 AM EDT AGE/SEX: 27 years / Female INDICATIONS: Right upper quadrant pain. CLINICAL DATA: This is the patient's initial encounter. Patient reports that signs and/or symptoms h ave been present for 1 day and indicates a pain score of 7/10. MEDICAL/SURGICAL HISTORY: . . COMPARISON: No prior exams available for comparison MEASUREMENTS (cm x cm x cm): Liver:__ 15.1 cm length Common Bile Duct:__ 3mm FINDINGS: Liver: Normal echotexture without focal lesion or ductal dilatation. Portal Vein: Hepatofugal flow seen in portal vein. Common Duct: No intraluminal mass or stone visualized. Gallbladder: The gallbladder is contracted and therefore not evaluated. Pancreas: Not well visualized. Right Kidney: No mass or hydronephrosis Other: None. CONCLUSION: 1. Contracted gallbladder since the patient ate 5 hours ago and therefore not evaluated, otherwise u nremarkable. Electronically signed by: Kathy Goldstein MD 04/06/2018 2:20 AM EDT
== END 2018-04-06 03:14 | disposition home or self-care (01) ==
LOC: NEPC 21:59
DX: K80.20 Calculus of gallbladder without cholecystitis without obstruction (principal)
CPT/HCPCS: 76705; 80053; 81001; 83690; 84703; 85025; 96361; 96374; 96375; 99284; J1885; J2405; J7030

== ENCOUNTER 2018-04-21 20:30 | Emergency (ER) | payer OTHER, MEDICAID ==
[~2018-04-21] VITALS: Ht 160 cm; Wt 65.0 kg
[~2018-04-21 20:30] MED LIST changes: +CYCL10TA PO; +IBUP1TAB7 PO; +TRAM50 PO; +TRAM50TA PO
[2018-04-21 21:22] VITALS: BP 123/76; PULSE 93; RESP 16; TEMP 98.8; O2SAT 99
[2018-04-21] MEDS ORDERED: DICL75TA PO (22:53)
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
== END 2018-04-21 23:37 | disposition home or self-care (01) ==
LOC: NEPD 20:30
DX: S90.31XA Contusion of right foot, initial encounter (principal); V09.09XA Pedestrian injured in nontraffic accident involving other motor vehicles, initial encounter; Y99.0 Civilian activity done for income or pay
CPT/HCPCS: 99283; L2114